=== PATIENT | female | born 1995 | race African-American/Black ===

== ENCOUNTER 2016-08-09 04:40 | Emergency (ER) | payer SELFPAY ==
[~2016-08-09] VITALS: Ht 152.4 cm; Wt 68.0 kg
[2016-08-09 04:42] VITALS: BP 115/78; PULSE 102; RESP 20; TEMP 98.2; O2SAT 99
--- NOTE | 2016-08-09 04:59 | PD ---
HPI Chief Complaint: Cold / Flu Symptoms Time Seen by Provider: 04:50 Travel History International Travel<30 days: No Contact w/Intl Traveler<30days: No Traveled to known affect area: No History of Present Illness HPI This is a 20-year-old female noticed significant past medical history. She presents for evaluation of cough, congestion. Symptoms started 2 weeks ago. She reports nasal congestion, dry nonproductive cough, occasional posttussive emesis. Denies fevers, chills, sore throat, ear pain, recent travel. She's been using [id number] Mucinex but symptoms persist which prompted evaluation. She has no other complaints at this time. PFSH Past Medical History Diminished Hearing: No Gastrointestinal Disorders: Yes (anal fissure) ?: Not LMP: THIS WEEK : 0 Social History Alcohol Use: No Tobacco Use: No Substance Use: No Allergies-Medications (Allergen,Severity, Reaction): Coded Allergies: No Known Allergies (Unverified , 08/09/16) Reported Meds & Prescriptions Reported Meds & Active Scripts Active Tessalon Perles (Benzonatate) 100 Mg Cap 200 Mg PO TID PRN Afrin Nasal [place] (Oxymetazoline HCl) 0.05% [place] 2-3 [place] EACH NARE Q12H PRN Review of Systems Except as stated in HPI: all other systems reviewed are Neg Physical Exam Narrative GENERAL: Well-developed well-nourished female in no acute distress SKIN: Warm and dry. HEAD: Atraumatic. Normocephalic. EYES: Pupils equal and round. No scleral icterus. No injection or drainage. ENT: No nasal bleeding or discharge. Mucous membranes pink and moist. No oropharyngeal erythema or exudate. Tympanic membranes reveal normal anatomic landmarks no erythema or fluid level NECK: Trachea midline. No JVD. No lymphadenopathy CARDIOVASCULAR: Regular rate and rhythm. No murmur appreciated. RESPIRATORY: No accessory muscle use. Clear to auscultation. Breath sounds equal bilaterally. No crackles no wheezing or rhonchi Data Data Last Documented VS Vital Signs Date Time Temp Pulse Resp B/P Pulse Ox O2 Delivery O2 Flow Rate FiO2 08/09/16 04:42 98.2 102 20 115/78 99 Orders Chest, Single Ap (08/09/16 ) Oxymetazoline 0.05% Maximo [place] (Afrin 0.0 (08/09/16 05:00) Benzonatate (Tessalon) (08/09/16 05:00) [facility] Medical Decision Making Medical Screen Exam Complete: Yes Emergency Medical Condition: Yes Medical Record Reviewed: Yes Interpretation(s) Chest x-ray no acute abnormalities Differential Diagnosis Rhinitis, bronchitis, sinusitis, pneumonia, influenza, reactive airway disease Narrative Course 20-year-old female who has had a persistent cough and nasal congestion for 2 weeks. The patient will be given Afrin, Tessalon. Chest x-ray has been ordered. Chest x-ray reveals no acute abnormalities. Upon reexamination the patient feels much better. Plan will be discharge the patient with Tessalon, Afrin for outpatient use. She is stable for discharge. Diagnosis Primary Impression: Upper respiratory infection Qualified Code: J06.9 - Upper respiratory tract infection, unspecified type Additional Instructions: Medication as prescribed. Do not use Afrin longer than 3 days as this can cause worsening congestion. Stay well hydrated and well-nourished. Follow-up with primary care physician as needed. Med/Other Pt SpecificInfo: Prescription(s) given Scripts Benzonatate (Tessalon Perles)100 Mg [id number] Mg PO TID PRN (COUGH) #30 CAP Ref 0 Prov:Carmen Cyr MD 08/09/16 Oxymetazoline Nasal (Afrin Nasal [place])0.05% Spray2-3 [place] EACH NARE Q12H PRN ( NASAL CONGESTION) #1 BOTTLE Ref 0 Prov:Carmen Cyr MD 08/09/16 Disposition: 01 DISCHARGE HOME Condition: Stable Ti Brito Aug 09, 2016 04:59
[2016-08-09] MEDS ORDERED: BENZONATATE 100 MG CAP PO ONE (05:00)
[2016-08-09] MEDS ORDERED: OXYMETAZOLINE HCL 0.05% 15 ML NASAL SPRAY NASAL ONE (05:00)
[2016-08-09] MEDS ORDERED: AFRI0.052 EACH NARE (06:02)
[2016-08-09] MEDS ORDERED: BENZ100 PO (06:02)
--- NOTE | 2016-08-09 06:25 | RADRPT ---
EXAM DATE/TIME: 08/09/2016 05:29 [place] COMPARISON: No previous studies available for comparison. INDICATIONS : Congestion. MEDICAL HISTORY : None. SURGICAL HISTORY : None. ENCOUNTER: Initial ACUITY: 2 weeks PAIN SCORE: 0/10 LOCATION: Bilateral chest FINDINGS: A single view of the chest demonstrates the lungs to be symmetrically aerated without evidence of mas s, infiltrate or effusion. The cardiomediastinal contours are unremarkable. Osseous structures are intact. CONCLUSION: Normal examination. Layton Torres Jr., MD on August 09, 2016 at 6:23 Board Certified Radiologist. This report was verified electronically.
== END 2016-08-09 06:14 | disposition home or self-care (01) ==
LOC: NEPB 04:40
DX: J06.9 Acute upper respiratory infection, unspecified (principal); R09.81 Nasal congestion
CPT/HCPCS: 71010; 99283

== ENCOUNTER 2018-07-22 23:39 | Observation (INO) ==
[2018-07-23 00:33] LABS: Baso % (Auto) 0.5 % (0.0-2.0); Eos # (Auto) 0.1 th/mm3 (0.0-0.4); Hematocrit 40.3 % (35.0-46.0); Hemoglobin 13.6 gm/dL (11.6-15.3); Lymph # (Auto) 5.5 th/mm3 (1.0-4.8); Lymph % (Auto) 56.9 % (9.0-44.0); Mean Corpuscular HGB Conc 33.8 % (32.0-36.0); Mean Corpuscular Hemoglobin 30.4 pg (27.0-34.0); Mean Corpuscular Volume 89.8 fL (80.0-100.0); Mono # (Auto) 0.4 th/mm3 (0.0-0.9); Mono % (Auto) 4.6 % (0.0-8.0); Neut # (Auto) 3.6 th/mm3 (1.8-7.7); Platelet Count 310 th/mm3 (150-450); Red Blood Count 4.49 mil/mm3 (4.00-5.30); Red Cell Distribution Width 14.2 % (11.6-17.2); White Blood Count 9.6 th/mm3 (4.0-11.0)
--- NOTE | 2018-07-23 00:42 | XR ---
EXAM DATE: 07/23/2018 12:27 AM EST AGE/SEX: 22 years / Female INDICATIONS: Short of breath, AMS. CLINICAL DATA: This is the patient's initial encounter. Patient reports that signs and symptoms have been present for 1 day and indicates a pain score of 0/10. MEDICAL/SURGICAL HISTORY: None. None. COMPARISON: [facility] [place], CHEST SINGLE AP, 08/09/2016. . FINDINGS: There is significant patient rotation towards the right which creates an asymmetry between left and r ight hemithorax. When taking into account the patient rotation, the lungs are symmetrically aerated a nd clear. No evidence of pneumothorax. The heart is normal in size. Both hemidiaphragms well delineat ed. CONCLUSION: The lungs are clear. Electronically signed by: Layton Mckenzie MD Board Certified Radiologist 07/23/2018 12:40 AM EST
[2018-07-23 00:44] LABS: Activated Partial Thrombo Time 28.9 sec (23.4-31.7); Prothrombin Time 10.3 sec (9.8-11.6)
--- NOTE | 2018-07-23 00:49 | ED ---
HPI General Chief Complaint: Altered Mental Status Stated Complaint: resp Time Seen by Provider: 07/22/18 23:45 History of Present Illness HPI narrative: 22 Y B F presents to the ED via EMS for altered mental status. Note: a good hx is unobtainable at this time as the patient is not responding appropriately to questions and repeatedly states "I don't know," when I tried to converse with her. She does state that she has a headache and her abdomen hurts as well. She did not provide further information when asked. She admits to vomiting and diarrhea, but again does not provide further information on questioning. UPDATE: Since initial encounter >1 hr ago in ED after eating at restaurant, patient is no longer anxious or in distress and communicates normally. She has no memory loss and states that she was frustrated when she couldn't tell providers what was wrong with her, and she felt "foggy," at that time. Her chief concern is a throbbing unilateral headache on the left side for the past few hours. She admitted to visual changes when she was first evaluated in the ED , stating her vision was "blurry and felt like she can't focus." Denies autonomic signs. She has also had some constant diffuse abdominal pain, but it is her headache that is bothering her the most. Related Data Home Medications Medication Instructions Recorded Confirmed No Known Home Medications 07/22/18 07/22/18 Allergies Allergy/AdvReac Type Severity Reaction Status Date / Time No Known Allergies Allergy Uncoded 08/09/16 04:57 Review of Systems Constitutional Reports as per HPI and Reports fever(s) Cardiovascular Reports as per HPI Respiratory Reports as per HPI Gastrointestinal Reports as per HPI, Reports abdominal pain and Reports diarrhea PMFSH Medical History Medical History No significant past medical history (Acute) Family History Family History Other Family history normal Social History Social History Substance History: No History of Abuse Second Hand Smoke Exposure: No Smoking Status: Never smoker How Often Do You Have a Drink Containing Alcohol: Never Recent Travel in [facility] within the Last 8 Weeks: No Recent Out of Country Travel within the Last 8 Weeks: No Exam Const General: anxious Nutritional Appearance: well nourished Orientation: alert and other (she is responsive to commands but is not able to express speech and engage in conversation beyond simple "yes, no, and I dont know") [facility] Head: normal to inspection, normocephalic and atraumatic Neck Neck: normal visual inspection, full ROM, no meningeal signs and supple Resp Auscultation: clear to auscultation bilaterally Cardio Rate: regular rate Rhythm: regular rhythm Course Initial Documented Vital Signs Temperature 97.8 F 07/22/18 23:43 Pulse Rate 69 07/22/18 23:43 Respiratory Rate 24 07/22/18 23:43 Blood Pressure 111/79 07/22/18 23:43 Pulse Oximetry 100 07/22/18 23:43 Last Documented Vital Signs Temperature 97.8 F 07/22/18 23:43 Pulse Rate 68 07/23/18 04:29 Respiratory Rate 15 07/23/18 04:29 Blood Pressure 90/51 L 07/23/18 04:29 Pulse Oximetry 99 07/23/18 04:29 Medical Decision Making MDM Narrative Medical decision making narrative: I, Dr. Cyr, have reviewed the medical student's documentation, and I am in agreement, met with the patient face to face, made the diagnosis, and the medical decision making was done by me. The patient was initially evaluated by MS ROSETTE Hardwick. Please see their complete history and physical. *My assessment and Findings: The patient presents with a history of altered mentation noted at a restaurant prior to arrival. According to ambulance services, the patient was noted to be altered at a restaurant therefore she was brought to the emergency department for evaluation and treatment. The patient is repetitive with her answers, stating okay or yes even when the question would not require that type of answer. The patient otherwise on exam is nonfocal. The patient has no nuchal rigidity. The patient attempts to follow commands. She denies any alcohol or drug use. After her workup was started, the patient became more lucid and was able to provide her history. The patient additionally had one episode of nausea and vomiting while being observed in the emergency department. During the course of the patient's emergency department visit, the patient's history, examination, and differential diagnosis were reviewed with the patient. The patient was placed on a activities officer with oximetry and frequent blood pressure monitoring. The patient had IV access obtained and blood work sent for analysis. The patient was initially provided normal saline 1 L IV fluid bolus, Zofran 4 mg IV. The patient's diagnostic studies were reviewed and remarkable for A white count of 9.6, hemoglobin 13.6, platelets 310 with 56.9 lymphocytes, PT PTT within normal limits, chemistries remarkable for potassium 3.2, GFR of 82, glucose 103 , troponin I within normal limits, ammonia level within normal limits, urinalysis shows no acute abnormality, acetaminophen is less than 2, salicylate less than 1.7, urine drug screen is negative, alcohol level is less than 3. CHEST X-RAY: Shows no acute abnormality, CT scan of the brain shows no acute abnormality. CTA of the head and neck shows no acute abnormality. The patient will be admitted to the hospital for continued evaluation and treatment of an episode of altered mentation associated with headache. The patient's case including history, pertinent physical examination findings, and laboratory studies were discussed with Dr. Fischer. It was agreed that the patient would be admitted to the hospitalist service. The patient's results were discussed with the patient, including the plan of care. I explained that further testing and/ or monitoring is indicated based on the patient's history, examination, and/ or laboratory findings. Therefore, I recommended admission for additional evaluation. The patient expressed understanding and was agreeable with this plan. The patient was admitted to the hospital in guarded condition and sent to a bed under the care of [facility] service. Medical Screen Exam Complete: Yes Emergency Medical Condition: Yes Differential Diagnosis Differential Diagnosis: Intracranial hemorrhage, versus intracranial mass, versus encephalopathy, versus electrolyte derangements, versus substance intoxication, versus seizure activity Medical Records Medical records reviewed: Yes I reviewed the patient's medical records. Lab Data Lab results reviewed: Yes I reviewed the patient's lab results. Result diagrams: 07/23/18 00:25 07/23/18 00:25 POC Results POC Urine Results Negative Lab Results 07/23/18 07/23/18 07/23/18 Range/Units 00:12 00:25 00:25 WBC 9.6 (4.0-11.0) th/mm3 RBC 4.49 (4.00-5.30) mil/mm3 Hgb 13.6 (11.6-15.3) gm/dL Hct 40.3 (35.0-46.0) % MCV 89.8 (80.0-100.0) fL MCH 30.4 (27.0-34.0) pg MCHC 33.8 (32.0-36.0) % RDW 14.2 (11.6-17.2) % Plt Count 310 (150-450) th/mm3 MPV 8.0 (7.0-11.0) fL Prelim Diff (Auto) Slide review pending Neut % (Auto) 37.0 (16.0-70.0) % Lymph % (Auto) 56.9 H (9.0-44.0) % [place] % (Auto) 4.6 (0.0-8.0) % Eos % (Auto) 1.0 (0.0-4.0) % Baso % (Auto) 0.5 (0.0-2.0) % Neut # (Auto) 3.6 (1.8-7.7) th/mm3 Lymph # (Auto) 5.5 H (1.0-4.8) th/mm3 [place] # (Auto) 0.4 (0.0-0.9) th/mm3 Eos # (Auto) 0.1 (0.0-0.4) th/mm3 Baso # (Auto) 0.0 (0.0-0.2) th/mm3 WBC Differential Manual diff final Seg Neuts % (Manual) 31 (16-70) % Lymphocytes % (Manual) 55 H (9-44) % Atypical Lymphs % (Man) 10 H (0-0) % Monocytes % (Manual) 3 (0-8) % Basophils % (Manual) 1 (0-2) % Abs Neuts (Manual) 3.0 (1.8-7.7) th/mm3 Differential Comment . Platelet Estimate Normal (Normal) Platelet Morphology Normal (Normal) RBC Morphology Normal (Normal) ESR (0-20) mm/hr PT 10.3 (9.8-11.6) sec INR 1.0 Ratio APTT 28.9 (23.4-31.7) sec Sodium (136-145) meq/L Potassium (3.5-5.1) meq/L Chloride (98-107) meq/L Carbon Dioxide (21.0-32.0) meq/L Anion Gap (5-15) meq/L BUN (7-18) mg/dL Creatinine (0.50-1.00) mg/dL Estimated GFR (>89) mL/min POC Glucose 125 H (68-110) mg/dl Random Glucose (74-106) mg/dL Calcium (8.5-10.1) mg/dL Magnesium (1.5-2.5) mg/dL Total Bilirubin (0.2-1.0) mg/dL AST (15-37) U/L ALT (10-53) U/L Alkaline Phosphatase (45-117) U/L Ammonia (11-32) mcmol/L Troponin I (0.02-0.05) ng/mL Total Protein (6.4-8.2) g/dL Albumin (3.4-5.0) g/dL TSH (0.358-3.740) uIU/mL Urine Color (Yellw/Straw) Urine Clarity (Clear) Urine pH (5.0-8.5) Ur Specific [place] (1.002-1.035) Urine Protein (Neg-Trace) mg/dL Urine Glucose (UA) (Negative) mg/dL Urine Ketones (Negative) mg/dL Urine Occult Blood (Negative) Urine Nitrate (Negative) Urine Bilirubin (Negative) Urine Urobilinogen (Less than 2) mg/dL Ur Leukocyte Esterase (Negative) Urine RBC (0-3) /hpf Urine WBC (0-5) /hpf Ur Squamous Epith Cells (0-5) /hpf Urine Mucus (Occasional) /lpf Micro UA Comment Ur Microscopic Review Urine Culture Comments Salicylates (2.8-20.0) mg/dL Urine Opiates Screen (Neg) Acetaminophen (10.0-30.0) mcg/mL Ur Barbiturates Screen (Neg) Ur Amphetamine Screen (Neg) Ur Amphetamines Screen (Neg) U Benzodiazepines Scrn (Neg) Urine Cocaine Screen (Neg) U Cannabinoids Screen (Neg) Serum Alcohol (0-5) mg/dL 07/23/18 07/23/18 07/23/18 Range/Units 00:25 00:25 00:25 WBC (4.0-11.0) th/mm3 RBC (4.00-5.30) mil/mm3 Hgb (11.6-15.3) gm/dL Hct (35.0-46.0) % MCV (80.0-100.0) fL MCH (27.0-34.0) pg MCHC (32.0-36.0) % RDW (11.6-17.2) % Plt Count (150-450) th/mm3 MPV (7.0-11.0) fL Prelim Diff (Auto) Neut % (Auto) (16.0-70.0) % Lymph % (Auto) (9.0-44.0) % [place] % (Auto) (0.0-8.0) % Eos % (Auto) (0.0-4.0) % Baso % (Auto) (0.0-2.0) % Neut # (Auto) (1.8-7.7) th/mm3 Lymph # (Auto) (1.0-4.8) th/mm3 [place] # (Auto) (0.0-0.9) th/mm3 Eos # (Auto) (0.0-0.4) th/mm3 Baso # (Auto) (0.0-0.2) th/mm3 WBC Differential Seg Neuts % (Manual) (16-70) % Lymphocytes % (Manual) (9-44) % Atypical Lymphs % (Man) (0-0) % Monocytes % (Manual) (0-8) % Basophils % (Manual) (0-2) % Abs Neuts (Manual) (1.8-7.7) th/mm3 Differential Comment Platelet Estimate (Normal) Platelet Morphology (Normal) RBC Morphology (Normal) ESR (0-20) mm/hr PT (9.8-11.6) sec INR Ratio APTT (23.4-31.7) sec Sodium 139 (136-145) meq/L Potassium 3.2 L (3.5-5.1) meq/L Chloride 104 (98-107) meq/L Carbon Dioxide 24.7 (21.0-32.0) meq/L Anion Gap 10 (5-15) meq/L BUN 12 (7-18) mg/dL Creatinine 1.00 (0.50-1.00) mg/dL Estimated GFR 82 L (>89) mL/min POC Glucose (68-110) mg/dl Random Glucose 103 (74-106) mg/dL Calcium 8.6 (8.5-10.1) mg/dL Magnesium 1.9 (1.5-2.5) mg/dL Total Bilirubin 0.3 (0.2-1.0) mg/dL AST 21 (15-37) U/L ALT 21 (10-53) U/L Alkaline Phosphatase 79 (45-117) U/L Ammonia 23 (11-32) mcmol/L Troponin I Less than 0.02 L (0.02-0.05) ng/mL Total Protein 8.4 H (6.4-8.2) g/dL Albumin 4.0 (3.4-5.0) g/dL TSH 3.070 (0.358-3.740) uIU/mL Urine Color (Yellw/Straw) Urine Clarity (Clear) Urine pH (5.0-8.5) Ur Specific [place] (1.002-1.035) Urine Protein (Neg-Trace) mg/dL Urine Glucose (UA) (Negative) mg/dL Urine Ketones (Negative) mg/dL Urine Occult Blood (Negative) Urine Nitrate (Negative) Urine Bilirubin (Negative) Urine Urobilinogen (Less than 2) mg/dL Ur Leukocyte Esterase (Negative) Urine RBC (0-3) /hpf Urine WBC (0-5) /hpf Ur Squamous Epith Cells (0-5) /hpf Urine Mucus (Occasional) /lpf Micro UA Comment Ur Microscopic Review Urine Culture Comments Salicylates Less than 1.7 L (2.8-20.0) mg/dL Urine Opiates Screen (Neg) Acetaminophen Less than 2.0 L (10.0-30.0) mcg/mL Ur Barbiturates Screen (Neg) Ur Amphetamine Screen (Neg) Ur Amphetamines Screen (Neg) U Benzodiazepines Scrn (Neg) Urine Cocaine Screen (Neg) U Cannabinoids Screen (Neg) Serum Alcohol Less than 3 (0-5) mg/dL 07/23/18 07/23/18 07/23/18 Range/Units 00:25 00:25 00:25 WBC (4.0-11.0) th/mm3 RBC (4.00-5.30) mil/mm3 Hgb (11.6-15.3) gm/dL Hct (35.0-46.0) % MCV (80.0-100.0) fL MCH (27.0-34.0) pg MCHC (32.0-36.0) % RDW (11.6-17.2) % Plt Count (150-450) th/mm3 MPV (7.0-11.0) fL Prelim Diff (Auto) Neut % (Auto) (16.0-70.0) % Lymph % (Auto) (9.0-44.0) % [place] % (Auto) (0.0-8.0) % Eos % (Auto) (0.0-4.0) % Baso % (Auto) (0.0-2.0) % Neut # (Auto) (1.8-7.7) th/mm3 Lymph # (Auto) (1.0-4.8) th/mm3 [place] # (Auto) (0.0-0.9) th/mm3 Eos # (Auto) (0.0-0.4) th/mm3 Baso # (Auto) (0.0-0.2) th/mm3 WBC Differential Seg Neuts % (Manual) (16-70) % Lymphocytes % (Manual) (9-44) % Atypical Lymphs % (Man) (0-0) % Monocytes % (Manual) (0-8) % Basophils % (Manual) (0-2) % Abs Neuts (Manual) (1.8-7.7) th/mm3 Differential Comment Platelet Estimate (Normal) Platelet Morphology (Normal) RBC Morphology (Normal) ESR 13 (0-20) mm/hr PT (9.8-11.6) sec INR Ratio APTT (23.4-31.7) sec Sodium (136-145) meq/L Potassium (3.5-5.1) meq/L Chloride (98-107) meq/L Carbon Dioxide (21.0-32.0) meq/L Anion Gap (5-15) meq/L BUN (7-18) mg/dL Creatinine (0.50-1.00) mg/dL Estimated GFR (>89) mL/min POC Glucose (68-110) mg/dl Random Glucose (74-106) mg/dL Calcium (8.5-10.1) mg/dL Magnesium (1.5-2.5) mg/dL Total Bilirubin (0.2-1.0) mg/dL AST (15-37) U/L ALT (10-53) U/L Alkaline Phosphatase (45-117) U/L Ammonia (11-32) mcmol/L Troponin I (0.02-0.05) ng/mL Total Protein (6.4-8.2) g/dL Albumin (3.4-5.0) g/dL TSH (0.358-3.740) uIU/mL Urine Color Yellow (Yellw/Straw) Urine Clarity Clear (Clear) Urine pH 7.0 (5.0-8.5) Ur Specific [place] 1.025 (1.002-1.035) Urine Protein Negative (Neg-Trace) mg/dL Urine Glucose (UA) Negative (Negative) mg/dL Urine Ketones Negative (Negative) mg/dL Urine Occult Blood Negative (Negative) Urine Nitrate Negative (Negative) Urine Bilirubin Negative (Negative) Urine Urobilinogen Less than 2 (Less than 2) mg/dL Ur Leukocyte Esterase Negative (Negative) Urine RBC 1 (0-3) /hpf Urine WBC Less than 1 (0-5) /hpf Ur Squamous Epith Cells 1 (0-5) /hpf Urine Mucus Few H (Occasional) /lpf Micro UA Comment Culture not ind Ur Microscopic Review Not Reportable Urine Culture Comments Culture not ind Salicylates (2.8-20.0) mg/dL Urine Opiates Screen Neg (Neg) Acetaminophen (10.0-30.0) mcg/mL Ur Barbiturates Screen Neg (Neg) Ur Amphetamine Screen (Neg) Ur Amphetamines Screen Neg (Neg) U Benzodiazepines Scrn Neg (Neg) Urine Cocaine Screen Neg (Neg) U Cannabinoids Screen Neg (Neg) Serum Alcohol (0-5) mg/dL 07/23/18 Range/Units 00:25 WBC (4.0-11.0) th/mm3 RBC (4.00-5.30) mil/mm3 Hgb (11.6-15.3) gm/dL Hct (35.0-46.0) % MCV (80.0-100.0) fL MCH (27.0-34.0) pg MCHC (32.0-36.0) % RDW (11.6-17.2) % Plt Count (150-450) th/mm3 MPV (7.0-11.0) fL Prelim Diff (Auto) Neut % (Auto) (16.0-70.0) % Lymph % (Auto) (9.0-44.0) % [place] % (Auto) (0.0-8.0) % Eos % (Auto) (0.0-4.0) % Baso % (Auto) (0.0-2.0) % Neut # (Auto) (1.8-7.7) th/mm3 Lymph # (Auto) (1.0-4.8) th/mm3 [place] # (Auto) (0.0-0.9) th/mm3 Eos # (Auto) (0.0-0.4) th/mm3 Baso # (Auto) (0.0-0.2) th/mm3 WBC Differential Seg Neuts % (Manual) (16-70) % Lymphocytes % (Manual) (9-44) % Atypical Lymphs % (Man) (0-0) % Monocytes % (Manual) (0-8) % Basophils % (Manual) (0-2) % Abs Neuts (Manual) (1.8-7.7) th/mm3 Differential Comment Platelet Estimate (Normal) Platelet Morphology (Normal) RBC Morphology (Normal) ESR (0-20) mm/hr PT (9.8-11.6) sec INR Ratio APTT (23.4-31.7) sec Sodium (136-145) meq/L Potassium (3.5-5.1) meq/L Chloride (98-107) meq/L Carbon Dioxide (21.0-32.0) meq/L Anion Gap (5-15) meq/L BUN (7-18) mg/dL Creatinine (0.50-1.00) mg/dL Estimated GFR (>89) mL/min POC Glucose (68-110) mg/dl Random Glucose (74-106) mg/dL Calcium (8.5-10.1) mg/dL Magnesium (1.5-2.5) mg/dL Total Bilirubin (0.2-1.0) mg/dL AST (15-37) U/L ALT (10-53) U/L Alkaline Phosphatase (45-117) U/L Ammonia (11-32) mcmol/L Troponin I (0.02-0.05) ng/mL Total Protein (6.4-8.2) g/dL Albumin (3.4-5.0) g/dL TSH (0.358-3.740) uIU/mL Urine Color (Yellw/Straw) Urine Clarity (Clear) Urine pH (5.0-8.5) Ur Specific [place] (1.002-1.035) Urine Protein (Neg-Trace) mg/dL Urine Glucose (UA) (Negative) mg/dL Urine Ketones (Negative) mg/dL Urine Occult Blood (Negative) Urine Nitrate (Negative) Urine Bilirubin (Negative) Urine Urobilinogen (Less than 2) mg/dL Ur Leukocyte Esterase (Negative) Urine RBC (0-3) /hpf Urine WBC (0-5) /hpf Ur Squamous Epith Cells (0-5) /hpf Urine Mucus (Occasional) /lpf Micro UA Comment Ur Microscopic Review Urine Culture Comments Salicylates (2.8-20.0) mg/dL Urine Opiates Screen Neg (Neg) Acetaminophen (10.0-30.0) mcg/mL Ur Barbiturates Screen Neg (Neg) Ur Amphetamine Screen Neg (Neg) Ur Amphetamines Screen (Neg) U Benzodiazepines Scrn Neg (Neg) Urine Cocaine Screen Neg (Neg) U Cannabinoids Screen Neg (Neg) Serum Alcohol (0-5) mg/dL Imaging Data Radiologist's impression: Chest X-Ray 07/23/18 00:00 CONCLUSION: The lungs are clear. Head CT 07/23/18 00:47 CONCLUSION: 1. Normal noncontrast CT brain. . Head CTA 07/23/18 01:29 CONCLUSION: 1. Negative CTA of the redding of [place]. . Neck CTA 07/23/18 01:29 CONCLUSION: 1. Negative CT of the carotids. ECG Data Attestation: I personally reviewed and interpreted this ECG as follows: Interpretation: The patient had an EKG done on arrival that shows a sinus rhythm heart rate is 63, QRS duration is 86 ms, QTC [address] segment elevation, T waves are inverted in V1, V2, V3. Discharge Plan Discharge Disposition Patient Disposition: ED Admit(ED Internal Use Only) Discharge Order Discharge Orders: ED Use Only Admit Order (Routine); Ordered 07/23/18 Ordered By: Carmen Cyr Discharge Details Diagnosis: Altered mental status Physicians Team ED Provider: Carmen Cyr Primary Care Provider: UNKNOWN, Attending Provider: Julissa Fischer Other Providers: Dudley Johnson Discharge Interventions Interventions: Vital Signs Last Done: 07/23/18 02:35 Status ED Status: Admitted Observation Patient
[2018-07-23 00:52] LABS: Amphetamine Screen,Urine Neg (Neg); Barbiturate Screen,Urine Neg (Neg); Bilirubin,Urine Negative (Negative); Cannabinoid Screen,Urine Neg (Neg); Clarity,Urine Clear (Clear); Cocaine Screen,Urine Neg (Neg); Color,Urine Yellow (Yellw/Straw); Glucose,Urine (UA) Negative (Negative); Leukocyte Esterase,Urine Negative (Negative); Mucus,Urine Few /lpf (Occasional); Nitrite,Urine Negative (Negative); Specific Gravity,Urine 1.025 (1.002-1.035); Squamous Epithelial Cell,Urine 1 /hpf (0-5)
[2018-07-23 00:54] LABS: Anion Gap 10 meq/L (5-15); Aspartate Aminotransferase 21 U/L (15-37); Blood Urea Nitrogen 12 mg/dL (7-18); Calcium 8.6 mg/dL (8.5-10.1); Carbon Dioxide 24.7 meq/L (21.0-32.0); Chloride 104 meq/L (98-107); Glomerular Filtration Rate 82 mL/min (>89); Glucose,Random 103 mg/dL (74-106); Magnesium 1.9 mg/dL (1.5-2.5); Potassium 3.2 meq/L (3.5-5.1); Sodium 139 meq/L (136-145)
--- NOTE | 2018-07-23 00:57 | CT ---
EXAM DATE: 07/23/2018 12:53 AM EST AGE/SEX: 22 years / Female INDICATIONS: Altered mental status. CLINICAL DATA: This is the patient's initial encounter. Patient reports that signs and symptoms have been present for 1 day and indicates a pain score of 0/10. MEDICAL/SURGICAL HISTORY: None. None. RADIATION DOSE: 34.94 CTDI (mGy) COMPARISON: No prior exams available for comparison. TECHNIQUE: CT of the head without contrast. Using automated exposure control and adjustment of the mA and/or kV according to patient size, radiation dose was kept as low as reasonably achievable to ob tain optimal diagnostic quality images. DICOM format image data is available electronically for revi ew and comparison. FINDINGS: Cerebrum: The ventricles are normal for age. No evidence of midline shift, mass lesion, hemorrhage or acute infarction. No extraaxial fluid collections are seen. Posterior Fossa: The cerebellum and brainstem are intact. The 4th ventricle is midline. The cerebe llopontine angle is unremarkable. Extracranial: The visualized portion of the orbits is intact. Skull: The calvaria is intact. No evidence of skull fracture. CONCLUSION: 1. Normal noncontrast CT brain. . Electronically signed by: Layton Mckenzie MD Board Certified Radiologist 07/23/2018 12:56 AM EST
[2018-07-23 00:58] LABS: Opiate Screen,Urine Neg (Neg)
[2018-07-23] MEDS ORDERED: Sodium Chlor 0.9% Inj 500 ML IV.SIG SCH (01:00)
[2018-07-23 01:03] LABS: Alanine Aminotransferase 21 U/L (10-53); Alkaline Phosphatase 79 U/L (45-117); Total Protein 8.4 g/dL (6.4-8.2)
[2018-07-23 01:14] LABS: Atypical Lymphs 10 % (0-0); Lymphocytes 55 % (9-44); Monocytes 3 % (0-8); Platelet Estimate Normal (Normal); Platelet Morphology Normal (Normal); RBC Morphology Normal (Normal)
[2018-07-23] MEDS ORDERED: Sod Chloride 0.9% Inj 1,000 ML IV.SIG ONE (02:36)
[2018-07-23] MEDS ORDERED: Acetaminophen 325 MG Tablet PO PRN (03:06)
[2018-07-23] MEDS ORDERED: Bisacodyl 10 MG Supp RECTAL PRN (03:06)
--- NOTE | 2018-07-23 03:36 | P.HP ---
History of Present Illness Service: [facility] Primary Care Physician: UNKNOWN History of Present Illness: 22-year-old female with no significant past medical history presents to the emergency department for evaluation of altered mental status. The patient reports she was sitting in a restaurant when she had "an anxiety attack". She reports that her heart was racing and her head was pounding and she was unable to answer questions that bystanders asked her. She states she understood the questions that they were asking and knew the answers but was unable to speak. On arrival to the emergency department she was unable to provide any further information. At the time of our interview, the patient had returned to baseline and was alert and oriented x4. She was able to recount what had happened. She denies any seizure history or seizure-like activity. No chest pain or shortness of breath. Positive nausea/vomiting and accompanying abdominal pain. Positive headache. No focal neurologic deficits or weakness. No fever/chills. The patient reports she had one amaretto sour earlier this evening, denies illicit drug use. Review of Systems All other systems reviewed negative except as [facility] - History History Provided By: Patient, [employer] / EMT - Medical History Medical History: Medical History (Last Updated 07/23/18 @ 03:31 by Julissa Fischer MD) No significant past medical history - Surgical History Surgical History: Surgical History (Last Reviewed 07/23/18 @ 03:31 by Julissa Fischer MD) No history of previous surgery - Family History Family History: Family History (Last Updated 07/23/18 @ 03:31 by Julissa Fischer MD) Other Family history normal - Social History I have reviewed the patient's Social History: Yes - Tobacco History Second Hand Smoke Exposure: No Smoking Status: Never smoker - Alcohol History How Often Do You Have a Drink Containing Alcohol: Never - Substance Use History Substance History: No History of Abuse - Travel History Recent Travel in the [place] Within the Last 8 Weeks: No Recent Travel Out of the Country Within the Last 8 Weeks: No - Immunization History Tetanus Immunization: Unable to Assess Medications and Allergies Active Medications: Active Medications Acetaminophen (Tylenol) 650 mg PO Q4H PRN PRN Reason: Temp > 100.4 Al Hydroxide/Mg Hydroxide (Milk Of Magnesia Liq) 30 ml PO Q12H PRN PRN Reason: Mild Constipation Bisacodyl (Dulcolax Supp) 10 mg RECTAL DAILY PRN PRN Reason: SEVERE CONSITIPATION Sodium Chloride (Ns Inj) 1,000 mls @ 100 mls/hr IV.CONT .Q10H AIMEE Lactulose (Lactulose Liq) 30 ml PO DAILY PRN PRN Reason: SEVERE CONSITIPATION Ondansetron HCl (Zofran Inj) 4 mg IV.PUSH Q6H PRN PRN Reason: NAUSEA OR VOMITING Sennosides (Senokot) 17.2 mg PO Q12H PRN PRN Reason: Moderate Constipation Sodium Chloride (Ns Flush) 2 ml IV.FLUSH PRN PRN PRN Reason: FLUSH AFTER USING IV ACCESS Sodium Chloride (Ns Flush) 2 ml IV.FLUSH BID AIMEE Sodium Chloride (Ns Flush) 2 ml IV.FLUSH PRN PRN PRN Reason: FLUSH AFTER USING IV ACCESS Allergies Allergy/AdvReac Type Severity Reaction Status Date / Time No Known Allergies Allergy Uncoded 08/09/16 04:57 Home Medications Medication Instructions Recorded Confirmed Type No Known Home Medications 07/22/18 07/22/18 History Exam Vital signs: Vital Signs 07/22/18 23:43 07/23/18 02:35 Temperature 97.8 F Pulse Rate 69 70 Respiratory Rate 24 15 Blood Pressure 111/79 89/52 L Pulse Oximetry 100 100 Intake & Output 07/22/18 07/22/18 07/23/18 06:59 18:59 06:59 Intake Total 500 / 500 Balance 500 / 500 Weight 72.575 kg Intake: IV 500 / 500 NS Inj 500 ML @ 50 mls/hr IV. 500 / 500 SIG .Q10H AIMEE Rx#:[id number] Narrative: Gen.: No acute distress Head: Normocephalic. Atraumatic. EENT: Pupils equal round and reactive to light. Nose without drainage. Airway intact. Throat without injection. Cardiovascular: Regular rate and rhythm. No murmurs, rubs or gallops. Respiratory: Lungs clear to auscultation bilaterally. No wheezes or rhonchi. Abdomen: Soft, nontender, nondistended. No peritoneal signs. Musculoskeletal: No gross deformities. No edema. Skin: No obvious rashes or erythema. Neuro: Sensory and motor grossly intact. Cranial nerves II through XII grossly intact. Alert and oriented x4. Strength 5/5 throughout. Results - Labs CBC & Chem 7: 07/23/18 00:25 07/23/18 00:25 Labs: Laboratory Results - last 24 hr 07/23/18 07/23/18 07/23/18 00:12 00:25 00:25 WBC 9.6 RBC 4.49 Hgb 13.6 Hct 40.3 MCV 89.8 MCH 30.4 MCHC 33.8 RDW 14.2 Plt Count 310 MPV 8.0 Prelim Diff (Auto) Slide review pending Neut % (Auto) 37.0 Lymph % (Auto) 56.9 H [place] % (Auto) 4.6 Eos % (Auto) 1.0 Baso % (Auto) 0.5 Neut # (Auto) 3.6 Lymph # (Auto) 5.5 H [place] # (Auto) 0.4 Eos # (Auto) 0.1 Baso # (Auto) 0.0 WBC Differential Manual diff final Seg Neuts % (Manual) 31 Lymphocytes % (Manual) 55 H Atypical Lymphs % (Man) 10 H Monocytes % (Manual) 3 Basophils % (Manual) 1 Abs Neuts (Manual) 3.0 Differential Comment . Platelet Estimate Normal Platelet Morphology Normal RBC Morphology Normal ESR PT 10.3 INR 1.0 APTT 28.9 Sodium Potassium Chloride Carbon Dioxide Anion Gap BUN Creatinine Estimated GFR POC Glucose 125 H Random Glucose Calcium Magnesium Total Bilirubin AST ALT Alkaline Phosphatase Ammonia Troponin I Total Protein Albumin TSH Urine Color Urine Clarity Urine pH Ur Specific [place] Urine Protein Urine Glucose (UA) Urine Ketones Urine Occult Blood Urine Nitrate Urine Bilirubin Urine Urobilinogen Ur Leukocyte Esterase Urine RBC Urine WBC Ur Squamous Epith Cells Urine Mucus Micro UA Comment Ur Microscopic Review Urine Culture Comments Salicylates Urine Opiates Screen Acetaminophen Ur Barbiturates Screen Ur Amphetamines Screen U Benzodiazepines Scrn Urine Cocaine Screen U Cannabinoids Screen Serum Alcohol 07/23/18 07/23/18 07/23/18 00:25 00:25 00:25 WBC RBC Hgb Hct MCV MCH MCHC RDW Plt Count MPV Prelim Diff (Auto) Neut % (Auto) Lymph % (Auto) [place] % (Auto) Eos % (Auto) Baso % (Auto) Neut # (Auto) Lymph # (Auto) [place] # (Auto) Eos # (Auto) Baso # (Auto) WBC Differential Seg Neuts % (Manual) Lymphocytes % (Manual) Atypical Lymphs % (Man) Monocytes % (Manual) Basophils % (Manual) Abs Neuts (Manual) Differential Comment Platelet Estimate Platelet Morphology RBC Morphology ESR PT INR APTT Sodium 139 Potassium 3.2 L Chloride 104 Carbon Dioxide 24.7 Anion Gap 10 BUN 12 Creatinine 1.00 Estimated GFR 82 L POC Glucose Random Glucose 103 Calcium 8.6 Magnesium 1.9 Total Bilirubin 0.3 AST 21 ALT 21 Alkaline Phosphatase 79 Ammonia 23 Troponin I Less than 0.02 L Total Protein 8.4 H Albumin 4.0 TSH 3.070 Urine Color Urine Clarity Urine pH Ur Specific [place] Urine Protein Urine Glucose (UA) Urine Ketones Urine Occult Blood Urine Nitrate Urine Bilirubin Urine Urobilinogen Ur Leukocyte Esterase Urine RBC Urine WBC Ur Squamous Epith Cells Urine Mucus Micro UA Comment Ur Microscopic Review Urine Culture Comments Salicylates Less than 1.7 L Urine Opiates Screen Acetaminophen Less than 2.0 L Ur Barbiturates Screen Ur Amphetamines Screen U Benzodiazepines Scrn Urine Cocaine Screen U Cannabinoids Screen Serum Alcohol Less than 3 07/23/18 07/23/18 07/23/18 00:25 00:25 00:25 WBC RBC Hgb Hct MCV MCH MCHC RDW Plt Count MPV Prelim Diff (Auto) Neut % (Auto) Lymph % (Auto) [place] % (Auto) Eos % (Auto) Baso % (Auto) Neut # (Auto) Lymph # (Auto) [place] # (Auto) Eos # (Auto) Baso # (Auto) WBC Differential Seg Neuts % (Manual) Lymphocytes % (Manual) Atypical Lymphs % (Man) Monocytes % (Manual) Basophils % (Manual) Abs Neuts (Manual) Differential Comment Platelet Estimate Platelet Morphology RBC Morphology ESR 13 PT INR APTT Sodium Potassium Chloride Carbon Dioxide Anion Gap BUN Creatinine Estimated GFR POC Glucose Random Glucose Calcium Magnesium Total Bilirubin AST ALT Alkaline Phosphatase Ammonia Troponin I Total Protein Albumin TSH Urine Color Yellow Urine Clarity Clear Urine pH 7.0 Ur Specific [place] 1.025 Urine Protein Negative Urine Glucose (UA) Negative Urine Ketones Negative Urine Occult Blood Negative Urine Nitrate Negative Urine Bilirubin Negative Urine Urobilinogen Less than 2 Ur Leukocyte Esterase Negative Urine RBC 1 Urine WBC Less than 1 Ur Squamous Epith Cells 1 Urine Mucus Few H Micro UA Comment Culture not ind Ur Microscopic Review Not Reportable Urine Culture Comments Culture not ind Salicylates Urine Opiates Screen Neg Acetaminophen Ur Barbiturates Screen Neg Ur Amphetamines Screen Neg U Benzodiazepines Scrn Neg Urine Cocaine Screen Neg U Cannabinoids Screen Neg Serum Alcohol - Imaging Impressions Chest X-Ray 07/23/18 00:00 CONCLUSION: The lungs are clear. Head CT 07/23/18 00:47 CONCLUSION: 1. Normal noncontrast CT brain. . Caprini VTE Risk Assessment Caprini VTE Risk Assessment: No/Low Risk (score <= 1) Caprini Risk Assessment Model: Point Value = 1 Point Value = 2 Point Value = 3 Point Value = 5 Age 41-60 Minor surgery BMI > 25 kg/m2 Swollen legs Varicose veins or History of unexplained or recurrent spontaneous Oral contraceptives or hormone replacement Sepsis (< 1 month) Serious lung disease, including pneumonia (< 1 month) Abnormal pulmonary function Acute myocardial infarction Congestive heart failure (< 1 month) History of inflammatory bowel disease Medical patient at bed rest Age 61-74 Arthroscopic surgery Major open surgery (> 45 min) Laparoscopic surgery (> 45 min) Malignancy Confined to bed (> 72 hours) Immobilizing plaster cast Central venous access Age >= 75 History of VTE Family history of VTE Factor V Leiden Prothrombin [id number] Lupus anticoagulant Anticardiolipin antibodies Elevated serum homocysteine Heparin-induced thrombocytopenia Other congenital or acquired thrombophilia Stroke (< 1 month) Elective arthroplasty Hip, pelvis, or leg fracture Acute spinal cord injury (< 1 month) Prophylaxis Regimen: Total Risk Factor Score Risk Level Prophylaxis Regimen 0-1 Low Early ambulation 2 Moderate Order ONE of the following: *Sequential Compression Device (SCD) *Heparin 5000 units SQ BID 3-4 Higher Order ONE of the following medications: *Heparin 5000 units SQ TID *Enoxaparin/Lovenox 40 mg SQ daily (WT < 150 kg, CrCl > 30 mL/min) *Enoxaparin/Lovenox 30 mg SQ daily (WT < 150 kg, CrCl > 10-29 mL/min) *Enoxaparin/Lovenox 30 mg SQ BID (WT < 150 kg, CrCl > 30 mL/min) AND/OR *Sequential Compression Device (SCD) 5 or more Highest Order ONE of the following medications: *Heparin 5000 units SQ TID (Preferred with Epidurals) *Enoxaparin/Lovenox 40 mg SQ daily (WT < 150 kg, CrCl > 30 mL/min) *Enoxaparin/Lovenox 30 mg SQ daily (WT < 150 kg, CrCl > 10-29 mL/min) *Enoxaparin/Lovenox 30 mg SQ BID (WT < 150 kg, CrCl > 30 mL/min) AND *Sequential Compression Device (SCD) Assessment and Plan - Plan Assessment/plan: 1. Altered mental status Head CT negative for acute process Head and neck CTA pending MRI pending EEG pending Neurology consulted, appreciate assistance OB/psych drug screen pending, initial drug screen negative FEN Regular diet Electrolytes: Status post p.o. repletion of potassium, monitor BMP
--- NOTE | 2018-07-23 03:47 | CT ---
EXAM DATE: 07/23/2018 3:11 AM EST AGE/SEX: 22 years / Female INDICATIONS: Altered mental status. CLINICAL DATA: This is the patient's initial encounter. Patient reports that signs and symptoms have been present for 1 day and indicates a pain score of 0/10. MEDICAL/SURGICAL HISTORY: None. None. RADIATION DOSE: 26.43 CTDI (mGy) COMPARISON: No prior exams available for comparison. TECHNIQUE: Volumetric scanning was performed using a multirow detector CT scanner during bolus infus ion of 75 ml Omnipaque 350 (iohexol) nonionic water-soluble contrast as a cumulative dose for multip le exams. The data was postprocessed with a variety of visualization algorithms including full-volu me maximum intensity projection, multiplanar sliding thin-slab reformation, curved-planar reformation , and surface-rendering techniques. Using automated exposure control and adjustment of the mA and/or kV according to patient size, radiation dose was kept as low as reasonably achievable to obtain opti mal diagnostic quality images. DICOM format image data is available electronically for review and co mparison. FINDINGS: Aortic Arch: There is a three-vessel origin of the great vessels from the aorta. No evidence of ost ial narrowing Right Carotid: The common carotid artery is intact. The carotid bulb has a normal configuration wit hout ulceration or narrowing. The internal carotid artery lumen is smooth without stenosis. The ext ernal carotid artery is intact. Left Carotid: The common carotid artery is intact. The carotid bulb has a normal configuration with out ulceration or narrowing. The internal carotid artery lumen is smooth without stenosis. The exte rnal carotid artery is intact. Vertebrals: The vertebral arteries have a symmetric diameter. No stenotic lesions are seen. Percent stenosis is calculated using the diameter of the stenotic region over the diameter of the nor mal distal internal carotid artery. CONCLUSION: 1. Negative CT of the carotids. Electronically signed by: Layton Mckenzie MD Board Certified Radiologist 07/23/2018 3:46 AM EST
--- NOTE | 2018-07-23 03:49 | CT ---
EXAM DATE: 07/23/2018 3:11 AM EST AGE/SEX: 22 years / Female INDICATIONS: Altered mental status. CLINICAL DATA: This is the patient's initial encounter. Patient reports that signs and symptoms have been present for 1 day and indicates a pain score of 0/10. MEDICAL/SURGICAL HISTORY: None. None. RADIATION DOSE: 26.43 CTDI (mGy) COMPARISON: No prior exams available for comparison. TECHNIQUE: Volumetric scanning was performed using a multi-row detector CT scanner during bolus infu jo[place] of 75 ml Omnipaque 350 (iohexol) nonionic water-soluble contrast as a cumulative dose for multi ple exams. The data was post processed with a variety of visualization algorithms including full vo lume maximum intensity projection, multi-planar sliding thin slab reformation, curved planar reformat ion, and surface rendering techniques. Using automated exposure control and adjustment of the mA and /or kV according to patient size, radiation dose was kept as low as reasonably achievable to obtain o ptimal diagnostic quality images. DICOM format image data is available electronically for review and comparison. FINDINGS: There is excellent visualization of the major intracranial arteries out to the second-order branch ve ssels. There is no evidence for aneurysm, vessel truncation or stenosis, and no evidence for vascula r malformation. Flow seen in the anterior communicating artery and in bilateral PCOM. CONCLUSION: 1. Negative CTA of the caht[place] of [place]. . Electronically signed by: Layton Mckenzie MD Board Certified Radiologist 07/23/2018 3:47 AM EST
[2018-07-23] MEDS: Sod Chloride 0.9% Inj 1,000 ML IV.CONT SCH ×4 (03:54→23:28)
[2018-07-23 04:09] LABS: Amphetamine Urine With Conf Neg (Neg); Benzodiazepine Urine With Conf Neg (Neg); Cannabinoid Urine With Conf Neg (Neg); Cocaine Urine With Conf Neg (Neg); Opiates Urine With Conf Neg (Neg)
[2018-07-23] MEDS ORDERED: Sodium Chloride 0.9% 2 ML Flush PRN IV.FLUSH (04:34)
--- NOTE | 2018-07-23 08:30 | P.CONNEU ---
History of Present Illness Service: Neurology Primary Care Provider: UNKNOWN Chief Complaint: confusion History of Present Illness: 22-year-old female presents to the emergency department for evaluation of altered mental status. The patient reports she was sitting in a restaurant when she had "an anxiety attack". She was at [employer] and a drink was driving home when she reports that her heart was racing and her head was pounding and she was unable to answer questions that bystanders asked her. She was able to recount what had happened. She denies any seizure history or seizure-like activity. No current chest pain or shortness of breath. No history of a significant migraines. CT brain scan negative for acute lesion. CTA brain carotids negative for any significant vaso-occlusive disease She is afebrile no leukocytosis. Preliminary urine drug screen negative. Additional drug screen pending. She feels back to herself. She is unsure what happened this never happened to her before. No history of concussion or any head or neck trauma. Review of Systems All other systems reviewed negative except as stated in HPI [facility] - History History Provided By: Patient, [employer] Supervisor / EMT - Medical History Medical History: Medical History (Last Updated 07/23/18 @ 03:31 by Julissa Fischer MD) No significant past medical history - Surgical History Surgical History: Surgical History (Last Reviewed 07/23/18 @ 03:31 by Julissa Fischer MD) No history of previous surgery - Family History Family History: Family History (Last Updated 07/23/18 @ 03:31 by Julissa Fischer MD) Other Family history normal - Tobacco History Second Hand Smoke Exposure: No Smoking Status: Never smoker - Alcohol History How Often Do You Have a Drink Containing Alcohol: Never - Substance Use History Substance History: No History of Abuse - Travel History Recent Travel in the [place] Within the Last 8 Weeks: No Recent Travel Out of the Country Within the Last 8 Weeks: No - Immunization History Tetanus Immunization: Unable to Assess Medications and Allergies Active Medications: Active Medications Acetaminophen (Tylenol) 650 mg PO Q4H PRN PRN Reason: Temp > 100.4 Al Hydroxide/Mg Hydroxide (Milk Of Magnesia Liq) 30 ml PO Q12H PRN PRN Reason: Mild Constipation Bisacodyl (Dulcolax Supp) 10 mg RECTAL DAILY PRN PRN Reason: SEVERE CONSITIPATION Sodium Chloride (Ns Inj) 1,000 mls @ 100 mls/hr IV.CONT .Q10H [facility] Last Admin: 07/23/18 03:54 Dose: 100 mls/hr Lactulose (Lactulose Liq) 30 ml PO DAILY PRN PRN Reason: SEVERE CONSITIPATION Ondansetron HCl (Zofran Inj) 4 mg IV.PUSH Q6H PRN PRN Reason: NAUSEA OR VOMITING Sennosides (Senokot) 17.2 mg PO Q12H PRN PRN Reason: Moderate Constipation Sodium Chloride (Ns Flush) 2 ml IV.FLUSH BID AIMEE Sodium Chloride (Ns Flush) 2 ml IV.FLUSH PRN PRN PRN Reason: FLUSH AFTER USING IV ACCESS Allergies Allergy/AdvReac Type Severity Reaction Status Date / Time No Known Allergies Allergy Uncoded 08/09/16 04:57 Home Medications Medication Instructions Recorded Confirmed Type No Known Home Medications 07/22/18 07/22/18 History Exam Vital signs: Vital Signs 07/22/18 23:43 07/23/18 02:35 07/23/18 04:29 Temperature 97.8 F Pulse Rate 69 70 68 Respiratory Rate 24 15 15 Blood Pressure 111/79 89/52 L 90/51 L Pulse Oximetry 100 100 99 07/23/18 05:56 07/23/18 06:41 Temperature Pulse Rate 56 L 58 L Respiratory Rate 14 12 Blood Pressure 94/60 L 98/65 L Pulse Oximetry 98 99 Intake & Output 07/22/18 07/23/18 07/23/18 18:59 06:59 18:59 Intake Total 1500 / 1500 Balance 1500 / 1500 Weight 72.575 kg Intake: IV 1500 / 1500 NS Inj 1,000 ML @ Wide Open IV. 1000 / 1000 SIG BOLUS ONE Rx#:[id number] NS Inj 500 ML @ 50 mls/hr IV. 500 / 500 SIG .Q10H AIMEE Rx#:[id number] Narrative: GENERAL: in NAD, SKIN: Warm and dry. HEAD: Atraumatic. Normocephalic. EYES: Pupils equal and round. No scleral icterus. ENT: No nasal bleeding or discharge. NECK: Trachea midline. CARDIOVASCULAR: Regular rate and rhythm. RESPIRATORY: No accessory muscle use. NEUROLOGICAL: Awake and alert. No aphasia, oriented x3 fluent articulate, No facial asymmetry, OU 3-2mm, eomi, VFF, No drift, Motor grossly within normal limits. Five out of 5 muscle strength in the arms and legs. Tone normal in all 4 limbs, Sensory normal in all 4 extremities to pin, msr 1-2+ sym, no clonus, planterflexor, PSYCHIATRIC: Appropriate mood and affect; insight and judgment normal. - Constitutional no acute distress - Routine HEENT Exam Head: Present: normocephalic Eye: Present: EOMI Results - Labs CBC & Chem 7: 07/23/18 00:25 07/23/18 00:25 Labs: Laboratory Results - last 24 hr 07/23/18 07/23/18 07/23/18 00:12 00:25 00:25 WBC 9.6 RBC 4.49 Hgb 13.6 Hct 40.3 MCV 89.8 MCH 30.4 MCHC 33.8 RDW 14.2 Plt Count 310 MPV 8.0 Prelim Diff (Auto) Slide review pending Neut % (Auto) 37.0 Lymph % (Auto) 56.9 H [place] % (Auto) 4.6 Eos % (Auto) 1.0 Baso % (Auto) 0.5 Neut # (Auto) 3.6 Lymph # (Auto) 5.5 H [place] # (Auto) 0.4 Eos # (Auto) 0.1 Baso # (Auto) 0.0 WBC Differential Manual diff final Seg Neuts % (Manual) 31 Lymphocytes % (Manual) 55 H Atypical Lymphs % (Man) 10 H Monocytes % (Manual) 3 Basophils % (Manual) 1 Abs Neuts (Manual) 3.0 Differential Comment . Platelet Estimate Normal Platelet Morphology Normal RBC Morphology Normal ESR PT 10.3 INR 1.0 APTT 28.9 Sodium Potassium Chloride Carbon Dioxide Anion Gap BUN Creatinine Estimated GFR POC Glucose 125 H Random Glucose Calcium Magnesium Total Bilirubin AST ALT Alkaline Phosphatase Ammonia Troponin I Total Protein Albumin TSH Urine Color Urine Clarity Urine pH Ur Specific [place] Urine Protein Urine Glucose (UA) Urine Ketones Urine Occult Blood Urine Nitrate Urine Bilirubin Urine Urobilinogen Ur Leukocyte Esterase Urine RBC Urine WBC Ur Squamous Epith Cells Urine Mucus Micro UA Comment Ur Microscopic Review Urine Culture Comments Salicylates Urine Opiates Screen Acetaminophen Ur Barbiturates Screen Ur Amphetamine Screen Ur Amphetamines Screen U Benzodiazepines Scrn Urine Cocaine Screen U Cannabinoids Screen Serum Alcohol 07/23/18 07/23/1807/23/18 00:25 00:25 00:25 WBC RBC Hgb Hct MCV MCH MCHC RDW Plt Count MPV Prelim Diff (Auto) Neut % (Auto) Lymph % (Auto) [place] % (Auto) Eos % (Auto) Baso % (Auto) Neut # (Auto) Lymph # (Auto) [place] # (Auto) Eos # (Auto) Baso # (Auto) WBC Differential Seg Neuts % (Manual) Lymphocytes % (Manual) Atypical Lymphs % (Man) Monocytes % (Manual) Basophils % (Manual) Abs Neuts (Manual) Differential Comment Platelet Estimate Platelet Morphology RBC Morphology ESR PT INR APTT Sodium 139 Potassium 3.2 L Chloride 104 Carbon Dioxide 24.7 Anion Gap 10 BUN 12 Creatinine 1.00 Estimated GFR 82 L POC Glucose Random Glucose 103 Calcium 8.6 Magnesium 1.9 Total Bilirubin 0.3 AST 21 ALT 21 Alkaline Phosphatase 79 Ammonia 23 Troponin I Less than 0.02 L Total Protein 8.4 H Albumin 4.0 TSH 3.070 Urine Color Urine Clarity Urine pH Ur Specific [place] Urine Protein Urine Glucose (UA) Urine Ketones Urine Occult Blood Urine Nitrate Urine Bilirubin Urine Urobilinogen Ur Leukocyte Esterase Urine RBC Urine WBC Ur Squamous Epith Cells Urine Mucus Micro UA Comment Ur Microscopic Review Urine Culture Comments Salicylates Less than 1.7 L Urine Opiates Screen Acetaminophen Less than 2.0 L Ur Barbiturates Screen Ur Amphetamine Screen Ur Amphetamines Screen U Benzodiazepines Scrn Urine Cocaine Screen U Cannabinoids Screen Serum Alcohol Less than 3 07/23/18 07/23/18 07/23/18 00:25 00:25 00:25 WBC RBC Hgb Hct MCV MCH MCHC RDW Plt Count MPV Prelim Diff (Auto) Neut % (Auto) Lymph % (Auto) [place] % (Auto) Eos % (Auto) Baso % (Auto) Neut # (Auto) Lymph # (Auto) [place] # (Auto) Eos # (Auto) Baso # (Auto) WBC Differential Seg Neuts % (Manual) Lymphocytes % (Manual) Atypical Lymphs % (Man) Monocytes % (Manual) Basophils % (Manual) Abs Neuts (Manual) Differential Comment Platelet Estimate Platelet Morphology RBC Morphology ESR 13 PT INR APTT Sodium Potassium Chloride Carbon Dioxide Anion Gap BUN Creatinine Estimated GFR POC Glucose Random Glucose Calcium Magnesium Total Bilirubin AST ALT Alkaline Phosphatase Ammonia Troponin I Total Protein Albumin TSH Urine Color Yellow Urine Clarity Clear Urine pH 7.0 Ur Specific [place] 1.025 Urine Protein Negative Urine Glucose (UA) Negative Urine Ketones Negative Urine Occult Blood Negative Urine Nitrate Negative Urine Bilirubin Negative Urine Urobilinogen Less than 2 Ur Leukocyte Esterase Negative Urine RBC 1 Urine WBC Less than 1 Ur Squamous Epith Cells 1 Urine Mucus Few H Micro UA Comment Culture not ind Ur Microscopic Review Not Reportable Urine Culture Comments Culture not ind Salicylates Urine Opiates Screen Neg Acetaminophen Ur Barbiturates Screen Neg Ur Amphetamine Screen Ur Amphetamines Screen Neg U Benzodiazepines Scrn Neg Urine Cocaine Screen Neg U Cannabinoids Screen Neg Serum Alcohol 07/23/18 00:25 WBC RBC Hgb Hct MCV MCH MCHC RDW Plt Count MPV Prelim Diff (Auto) Neut % (Auto) Lymph % (Auto) [place] % (Auto) Eos % (Auto) Baso % (Auto) Neut # (Auto) Lymph # (Auto) [place] # (Auto) Eos # (Auto) Baso # (Auto) WBC Differential Seg Neuts % (Manual) Lymphocytes % (Manual) Atypical Lymphs % (Man) Monocytes % (Manual) Basophils % (Manual) Abs Neuts (Manual) Differential Comment Platelet Estimate Platelet Morphology RBC Morphology ESR PT INR APTT Sodium Potassium Chloride Carbon Dioxide Anion Gap BUN Creatinine Estimated GFR POC Glucose Random Glucose Calcium Magnesium Total Bilirubin AST ALT Alkaline Phosphatase Ammonia Troponin I Total Protein Albumin TSH Urine Color Urine Clarity Urine pH Ur Specific [place] Urine Protein Urine Glucose (UA) Urine Ketones Urine Occult Blood Urine Nitrate Urine Bilirubin Urine Urobilinogen Ur Leukocyte Esterase Urine RBC Urine WBC Ur Squamous Epith Cells Urine Mucus Micro UA Comment Ur Microscopic Review Urine Culture Comments Salicylates Urine Opiates Screen Neg Acetaminophen Ur Barbiturates Screen Neg Ur Amphetamine Screen Neg Ur Amphetamines Screen U Benzodiazepines Scrn Neg Urine Cocaine Screen Neg U Cannabinoids Screen Neg Serum Alcohol - Imaging Impressions Chest X-Ray 07/23/18 00:00 CONCLUSION: The lungs are clear. Head CT 07/23/18 00:47 CONCLUSION: 1. Normal noncontrast CT brain. . Head CTA 07/23/18 01:29 CONCLUSION: 1. Negative CTA of the [place]. . Neck CTA 07/23/18 01:29 CONCLUSION: 1. Negative CT of the carotids. Review/Management - Diagnosis (1) Altered mental status Code(s): R41.82 - Altered mental status, unspecified Status: Acute Current Visit: Yes - Review/Management Plan: MRI brain negative neuro exam negative CTAs brain carotids negative Possible reaction to something she ate at the restaurant Recommendations Consider CT chest for further cardiac evaluation for racing heart and other symptomatology defer to medical EEG From neurologic standpoint she can be discharged if EEG negative (1) Altered mental status Qualifiers: Altered mental status type: disorientation Qualified Code(s): R41.0 - Disorientation, unspecified
[2018-07-23] MEDS ORDERED: Gadobutrol PF 7.5 MMOL/7.5 ML Vial (for RAD) IV.SIG ONE (09:21)
[2018-07-23] MEDS: Sodium Chloride 0.9% 2 ML Flush BID IV.FLUSH SCH ×2 (09:23→20:10)
--- NOTE | 2018-07-23 09:24 | MR ---
EXAM DATE: 07/23/2018 9:19 AM EST AGE/SEX: 22 years / Female INDICATIONS: Altered mental status. CLINICAL DATA: This is the patient's subsequent encounter. Patient reports that signs and symptoms h ave been present for 2 days and indicates a pain score of 0/10. MEDICAL/SURGICAL HISTORY: None. None. [place] [facility] [place]. [facility] [place]23/[place]. . TECHNIQUE: Multiplanar, multisequence examination of the brain was performed without and with 7 ml Ga davist (gadobutrol) contrast as a single exam dose. FINDINGS: Cerebrum: The ventricles are normal for age. No evidence of midline shift, mass lesion, hemorrhage or acute infarction. No extraaxial fluid collections are seen. The pituitary gland and suprasellar cistern are normal in configuration. White Matter: No significant signal abnormalities are seen in the white matter. Posterior Fossa: The cerebellum and brainstem are intact. The 4th ventricle is midline. The cerebel lopontine angle is unremarkable. The cerebellar tonsils are normal in position. Diffusion Imaging: No focal areas of restricted diffusion are seen. No evidence of acute infarction . Extracranial: The visualized portions of the orbits and paranasal sinuses are unremarkable. Post Contrast: No abnormal areas of parenchymal or dural enhancement. No evidence of blood-brain ba rrier breakdown. CONCLUSION: 1. Negative MR Brain with and without contrast. Electronically signed by: Axel Boykin MD Board Certified Radiologist 07/23/2018 9:23 AM EST
--- NOTE | 2018-07-23 15:00 | P.DS ---
DS: Providers Date of admission: 07/23/18 02:00 Primary care physician: UNKNOWN Consults: 07/23/18 03:06 Consult to Neurology Routine Consulting Provider: Dudley Johnson Reason for Consultation: ams Notified:: Service Spoke with:: Sharon Date Notified:: 07/23/18 Time Notified:: 03:11 Ordering Provider: АННА Brief History from admission: 22-year-old female with no significant past medical history presents to the emergency department for evaluation of altered mental status. The patient reports she was sitting in a restaurant when she had "an anxiety attack". She reports that her heart was racing and her head was pounding and she was unable to answer questions that bystanders asked her. She states she understood the questions that they were asking and knew the answers but was unable to speak. On arrival to the emergency department she was unable to provide any further information. At the time of our interview, the patient had returned to baseline and was alert and oriented x4. She was able to recount what had happened. She denies any seizure history or seizure-like activity. No chest pain or shortness of breath. Positive nausea/vomiting and accompanying abdominal pain. Positive headache. No focal neurologic deficits or weakness. No fever/chills. The patient reports she had one amaretto sour earlier this evening, denies illicit drug use. DS: Diagnosis Discharge Diagnosis (1) Altered mental status: Status: Acute DS: Summary Patient was seen and evaluated by neurology, and underwent CT angiogram of the neck, head, and EEG. No other acute abnormalities were noted, patient remained clinically stable with no further episodes, and neurology cleared her for discharge home for outpatient follow-up, patient may have reacted to something she had ingested, she had an amaretto sour, perhaps she had a reaction to this, She does report severe headache, possible atypical migraine episode, she has repeat episodes, she can follow-up with neurology for prophylaxis, at this point no further neurologic workup is indicated, patient can be followed up as an outpatient. Discharge diagnosis: Altered mental status possible related to toxic ingestion, i.e. toxic encephalopathy, resolved Mild hypokalemia Time Spent with Patient Total time spent providing and/or coordinating discharge services: Quality: VTE Deep Vein Thrombosis/Pulmonary Embolism Present on Admission: No Exam Narrative Exam Narrative: Pleasant awake alert oriented thin 22-year-old -[place] female Awake alert oriented no acute distress Heart S1-S2 regular Lungs clear bilateral no wheeze no rhonchi Abdomen soft nondistended positive bowel sounds Remedies no clubbing cyanosis no edema Results Labs on day of discharge: Labs from last 24 hours 07/23/18 07/23/18 07/23/18 00:25 00:25 00:25 WBC RBC Hgb Hct MCV MCH MCHC RDW Plt Count MPV Prelim Diff (Auto) Neut % (Auto) Lymph % (Auto) [place] % (Auto) Eos % (Auto) Baso % (Auto) Neut # (Auto) Lymph # (Auto) [place] # (Auto) Eos # (Auto) Baso # (Auto) WBC Differential Seg Neuts % (Manual) Lymphocytes % (Manual) Atypical Lymphs % (Man) Monocytes % (Manual) Basophils % (Manual) Abs Neuts (Manual) Differential Comment Platelet Estimate Platelet Morphology RBC Morphology ESR 13 PT INR APTT Sodium Potassium Chloride Carbon Dioxide Anion Gap BUN Creatinine Estimated GFR POC Glucose Random Glucose Calcium Magnesium Total Bilirubin AST ALT Alkaline Phosphatase Ammonia Troponin I Total Protein Albumin TSH Urine Color Urine Clarity Urine pH Ur Specific [place] Urine Protein Urine Glucose (UA) Urine Ketones Urine Occult Blood Urine Nitrate Urine Bilirubin Urine Urobilinogen Ur Leukocyte Esterase Urine RBC Urine WBC Ur Squamous Epith Cells Urine Mucus Micro UA Comment Ur Microscopic Review Urine Culture Comments Salicylates Urine Opiates Screen Neg Ur Buprenorphine Pending Ur [place] Screen Pending Urine Oxycodone Pending Ur Methadone Pending U Hydromorphone Confirm Pending Urine Fentanyl Pending Acetaminophen Ur Barbiturates Screen Neg Urine Gabapentin Pending Ur Phencyclidine (PCP) Pending Ur Amphetamine Screen Neg Ur Amphetamines Screen Ur MDMA & Metabolites Pending U Benzodiazepines Scrn Neg Urine Cocaine Screen Neg U Cannabinoids Screen Neg Serum Alcohol 07/23/18 07/23/18 07/23/18 00:25 00:25 00:25 WBC RBC Hgb Hct MCV MCH MCHC RDW Plt Count MPV Prelim Diff (Auto) Neut % (Auto) Lymph % (Auto) [place] % (Auto) Eos % (Auto) Baso % (Auto) Neut # (Auto) Lymph # (Auto) [place] # (Auto) Eos # (Auto) Baso # (Auto) WBC Differential Seg Neuts % (Manual) Lymphocytes % (Manual) Atypical Lymphs % (Man) Monocytes % (Manual) Basophils % (Manual) Abs Neuts (Manual) Differential Comment Platelet Estimate Platelet Morphology RBC Morphology ESR PT INR APTT Sodium Potassium Chloride Carbon Dioxide Anion Gap BUN Creatinine Estimated GFR POC Glucose Random Glucose Calcium Magnesium Total Bilirubin AST ALT Alkaline Phosphatase Ammonia Troponin I Total Protein Albumin TSH Urine Color Yellow Urine Clarity Clear Urine pH 7.0 Ur Specific [place] 1.025 Urine Protein Negative Urine Glucose (UA) Negative Urine Ketones Negative Urine Occult Blood Negative Urine Nitrate Negative Urine Bilirubin Negative Urine Urobilinogen Less than 2 Ur Leukocyte Esterase Negative Urine RBC 1 Urine WBC Less than 1 Ur Squamous Epith Cells 1 Urine Mucus Few H Micro UA Comment Culture not ind Ur Microscopic Review Not Reportable Urine Culture Comments Culture not ind Salicylates Less than 1.7 L Urine Opiates Screen Neg Ur Buprenorphine Ur [place] Screen Urine Oxycodone Ur Methadone U Hydromorphone Confirm Urine Fentanyl Acetaminophen Ur Barbiturates Screen Neg Urine Gabapentin Ur Phencyclidine (PCP) Ur Amphetamine Screen Ur Amphetamines Screen Neg Ur MDMA & Metabolites U Benzodiazepines Scrn Neg Urine Cocaine Screen Neg U Cannabinoids Screen Neg Serum Alcohol 07/23/18 07/23/18 07/23/18 00:25 00:25 00:25 WBC RBC Hgb Hct MCV MCH MCHC RDW Plt Count MPV Prelim Diff (Auto) Neut % (Auto) Lymph % (Auto) [place] % (Auto) Eos % (Auto) Baso % (Auto) Neut # (Auto) Lymph # (Auto) [place] # (Auto) Eos # (Auto) Baso # (Auto) WBC Differential Seg Neuts % (Manual) Lymphocytes % (Manual) Atypical Lymphs % (Man) Monocytes % (Manual) Basophils % (Manual) Abs Neuts (Manual) Differential Comment Platelet Estimate Platelet Morphology RBC Morphology ESR PT 10.3 INR 1.0 APTT 28.9 Sodium 139 Potassium 3.2 L Chloride 104 Carbon Dioxide 24.7 Anion Gap 10 BUN 12 Creatinine 1.00 Estimated GFR 82 L POC Glucose Random Glucose 103 Calcium 8.6 Magnesium 1.9 Total Bilirubin 0.3 AST 21 ALT 21 Alkaline Phosphatase 79 Ammonia 23 Troponin I Less than 0.02 L Total Protein 8.4 H Albumin 4.0 TSH 3.070 Urine Color Urine Clarity Urine pH Ur Specific [place] Urine Protein Urine Glucose (UA) Urine Ketones Urine Occult Blood Urine Nitrate Urine Bilirubin Urine Urobilinogen Ur Leukocyte Esterase Urine RBC Urine WBC Ur Squamous Epith Cells Urine Mucus Micro UA Comment Ur Microscopic Review Urine Culture Comments Salicylates Urine Opiates Screen Ur Buprenorphine Ur [place] Screen Urine Oxycodone Ur Methadone U Hydromorphone Confirm Urine Fentanyl Acetaminophen Less than 2.0 L Ur Barbiturates Screen Urine Gabapentin Ur Phencyclidine (PCP) Ur Amphetamine Screen Ur Amphetamines Screen Ur MDMA & Metabolites U Benzodiazepines Scrn Urine Cocaine Screen U Cannabinoids Screen Serum Alcohol Less than 3 07/23/18 07/23/18 00:25 00:12 WBC 9.6 RBC 4.49 Hgb 13.6 Hct 40.3 MCV 89.8 MCH 30.4 MCHC 33.8 RDW 14.2 Plt Count 310 MPV 8.0 Prelim Diff (Auto) Slide review pending Neut % (Auto) 37.0 Lymph % (Auto) 56.9 H [place] % (Auto) 4.6 Eos % (Auto) 1.0 Baso % (Auto) 0.5 Neut # (Auto) 3.6 Lymph # (Auto) 5.5 H [place] # (Auto) 0.4 Eos # (Auto) 0.1 Baso # (Auto) 0.0 WBC Differential Manual diff final Seg Neuts % (Manual) 31 Lymphocytes % (Manual) 55 H Atypical Lymphs % (Man) 10 H Monocytes % (Manual) 3 Basophils % (Manual) 1 Abs Neuts (Manual) 3.0 Differential Comment . Platelet Estimate Normal Platelet Morphology Normal RBC Morphology Normal ESR PT INR APTT Sodium Potassium Chloride Carbon Dioxide Anion Gap BUN Creatinine Estimated GFR POC Glucose 125 H Random Glucose Calcium Magnesium Total Bilirubin AST ALT Alkaline Phosphatase Ammonia Troponin I Total Protein Albumin TSH Urine Color Urine Clarity Urine pH Ur Specific [place] Urine Protein Urine Glucose (UA) Urine Ketones Urine Occult Blood Urine Nitrate Urine Bilirubin Urine Urobilinogen Ur Leukocyte Esterase Urine RBC Urine WBC Ur Squamous Epith Cells Urine Mucus Micro UA Comment Ur Microscopic Review Urine Culture Comments Salicylates Urine Opiates Screen Ur Buprenorphine Ur [place] Screen Urine Oxycodone Ur Methadone U Hydromorphone Confirm Urine Fentanyl Acetaminophen Ur Barbiturates Screen Urine Gabapentin Ur Phencyclidine (PCP) Ur Amphetamine Screen Ur Amphetamines Screen Ur MDMA & Metabolites U Benzodiazepines Scrn Urine Cocaine Screen U Cannabinoids Screen Serum Alcohol Impressions ITS Impressions Chest X-Ray 07/23/18 00:00 CONCLUSION: The lungs are clear. Head MRI 07/23/18 00:00 CONCLUSION: 1. Negative MR Brain with and without contrast. Head CT 07/23/18 00:47 CONCLUSION: 1. Normal noncontrast CT brain. . Head CTA 07/23/18 01:29 CONCLUSION: 1. Negative CTA of the [place]. . Neck CTA 07/23/18 01:29 CONCLUSION: 1. Negative CT of the carotids. Discharge Plan Discharge Disposition Patient Disposition: 01 Discharge Home Discharge Condition Condition: Good Discharge Order Discharge Orders: Discharge Order (Routine); Ordered 07/23/18 Ordered By: Jess Noel Discharge Details Discharge Comment: dc home if eeg nml, call w questions Physicians Team Primary Care Provider: UNKNOWN, Attending Provider: Jess Noel Other Providers: Dudley Johnson Rxs /Orders / Referrals /Forms Prescriptions: No Action No Known Home Medications RF: 0 Referrals: [employer] [Outside] - See Instructions (follow up if no pcp Please call the physician's office to book the appointment to be seen within [2-3 d]. Your Health Problems: Goals to Promote Your Health: To prevent worsening of your condition To maintain your health at the optimal level Directions to Meet Your Goals: Take your medications as prescribed Follow your dietary instruction Follow activity as directed Keep your appointments as scheduled Take your immunizations and boosters as scheduled If your symptoms worsen call your PCP If no PCP go to Urgent Care or Emergency Room Smoking is dangerous to your health. Avoid second hand smoke. You may reach the 24-hour crisis hotline for domestic abuse at .) UNKNOWN, [Primary Care Provider] - See Instructions ( Please call PCP physician's office to book the appointment to be seen within [2-3d]. [facility] Status ED Status: Left Department
--- NOTE | 2018-07-23 15:22 | ECG ---
Date Performed: 07/23/2018 Time Performed: 00:13:38 PTAGE: 22 years EKG: Sinus rhythm MODERATE T-WAVE ABNORMALITY, CONSIDER ANTERIOR ISCHEMIA ABNORMAL ECG NO PREVIOUS TRACING DOCTOR: Jose Kenyon Interpretating Date/Time 07/23/2018 15:19:36
[2018-07-24 00:07] VITALS: O2SAT 99
[2018-07-24] MEDS: Sod Chloride 0.9% Inj 1,000 ML IV.CONT SCH (00:33)
[2018-07-24 07:48] LABS: Baso % (Auto) 0.6 % (0.0-2.0); Eos # (Auto) 0.1 th/mm3 (0.0-0.4); Eos % (Auto) 0.9 % (0.0-4.0); Hematocrit 33.7 % (35.0-46.0); Hemoglobin 11.4 gm/dL (11.6-15.3); Lymph # (Auto) 4.3 th/mm3 (1.0-4.8); Lymph % (Auto) 68.5 % (9.0-44.0); Mean Corpuscular Hemoglobin 31.1 pg (27.0-34.0); Mean Corpuscular Volume 91.5 fL (80.0-100.0); Mean Platelet Volume 7.8 fL (7.0-11.0); Mono # (Auto) 0.3 th/mm3 (0.0-0.9); Mono % (Auto) 4.9 % (0.0-8.0); Neut # (Auto) 1.6 th/mm3 (1.8-7.7); Neut % (Auto) 25.1 % (16.0-70.0); Platelet Count 227 th/mm3 (150-450); Red Blood Count 3.68 mil/mm3 (4.00-5.30); Red Cell Distribution Width 14.4 % (11.6-17.2); White Blood Count 6.3 th/mm3 (4.0-11.0)
[2018-07-24 08:06] LABS: Anion Gap 5 meq/L (5-15); Blood Urea Nitrogen 8 mg/dL (7-18); Calcium 7.6 mg/dL (8.5-10.1); Carbon Dioxide 24.7 meq/L (21.0-32.0); Chloride 112 meq/L (98-107); Glomerular Filtration Rate Greater Than 89 mL/min (>89); Glucose,Random 91 mg/dL (74-106); Sodium 142 meq/L (136-145)
[2018-07-24] MEDS: Sodium Chloride 0.9% 2 ML Flush BID IV.FLUSH SCH (08:26)
[2018-07-24 08:31] VITALS: BP 96/57; PULSE 68; RESP 18; TEMP 98
--- NOTE | 2018-07-24 08:33 | MG ---
cc: Dudley Johnson MD ELECTROENCEPHALOGRAM RECORD NUMBER: [id number]. DESCRIPTION: 8-9 Hz alpha activity, 10-30 microvolts. Good anterior to posterior gradient present. Reasonable driving with photic stimulation. Good EEG variability reactivity during hyperventilation. Slight left temporal region slowing EPOCH 50 compared to the right side. Further slowing with transition into drowsy state followed by stage I and stage II sleep. Tiny sharp transient T3 EPOCH 122. Single EKG showing sinus rhythm. INTERPRETATION: Mild subtle nonspecific changes noted, otherwise stable awake, asleep electroencephalogram. Clinical correlation. Dudley Johnson MD MG/ts , 07:34 AM , 07:39 AM
--- NOTE | 2018-07-24 09:17 | P.PNNEU ---
Subjective Subjective Comments: no acute events. no spells. no alejandra, feels well Active Medications: Active Medications Acetaminophen (Tylenol) 650 mg PO Q4H PRN PRN Reason: Temp > 100.4 Al Hydroxide/Mg Hydroxide (Milk Of Magnesia Liq) 30 ml PO Q12H PRN PRN Reason: Mild Constipation Bisacodyl (Dulcolax Supp) 10 mg RECTAL DAILY PRN PRN Reason: SEVERE CONSITIPATION Sodium Chloride (Ns Inj) 1,000 mls @ 100 mls/hr IV.CONT .Q10H [facility] Last Admin: 07/24/18 00:33 Dose: 100 mls/hr Lactulose (Lactulose Liq) 30 ml PO DAILY PRN PRN Reason: SEVERE CONSITIPATION Ondansetron HCl (Zofran Inj) 4 mg IV.PUSH Q6H PRN PRN Reason: NAUSEA OR VOMITING Sennosides (Senokot) 17.2 mg PO Q12H PRN PRN Reason: Moderate Constipation Sodium Chloride (Ns Flush) 2 ml IV.FLUSH BID [facility] Last Admin: 07/24/18 08:26 Dose: Not Given Sodium Chloride (Ns Flush) 2 ml IV.FLUSH PRN PRN PRN Reason: FLUSH AFTER USING IV ACCESS Allergies/Adverse Reactions: Allergies Allergy/AdvReac Type Severity Reaction Status Date / Time No Known Allergies Allergy Uncoded 08/09/16 04:57 Review of Systems All other systems reviewed negative except as stated in HPI Physical Exam Vital signs: Vital Signs 07/23/18 09:26 07/23/18 09:27 07/23/18 12:00 Temperature Pulse Rate 67 57 L Respiratory Rate 18 17 Blood Pressure 99/53 L 109/67 Pulse Oximetry 100 99 100 07/23/18 12:31 07/23/18 16:00 07/23/18 19:35 Temperature 97.3 F L 97.8 F Pulse Rate 70 58 L 56 L Respiratory Rate 16 16 Blood Pressure 99/56 L 93/55 L Pulse Oximetry 98 98 07/24/18 00:00 07/24/18 04:00 07/24/18 08:28 Temperature 98.4 F 98.1 F 98 F Pulse Rate 65 61 68 Respiratory Rate 16 14 18 Blood Pressure 85/52 L 90/54 L 96/57 L Pulse Oximetry 99 99 99 Intake & Output 07/23/18 07/24/18 07/24/18 18:59 06:59 18:59 Intake Total 1000 / 1000 1000 / 1000 Output Total 2 / 2 Balance 1000 / 1000 998 / 998 Intake: IV 1000 / 1000 1000 / 1000 NS Inj 1,000 ML @ 100 mls/hr IV 1000 / 1000 1000 / 1000 .CONT .Q10H [facility] Rx#:[id number] Output: Urine 2 / 2 Narrative: GENERAL: in NAD, SKIN: Warm and dry. HEAD: Atraumatic. Normocephalic. EYES: Pupils equal and round. No scleral icterus. ENT: No nasal bleeding or discharge. NECK: Trachea midline. RESPIRATORY: No accessory muscle use. NEUROLOGICAL: Awake and alert. No aphasia, on phone when i came in, oriented x3 fluent articulate, No facial asymmetry, OU 3-2mm, eomi, VFF, No drift, Motor grossly within normal limits. Five out of 5 muscle strength in the arms and legs. PSYCHIATRIC: Appropriate mood and affect; insight and judgment normal. - Constitutional no acute distress - Routine HEENT Exam Head: Present: normocephalic Objective Laboratory Results - last 24 hr 07/24/18 07/24/18 07:14 07:14 WBC 6.3 RBC 3.68 L Hgb 11.4 L D Hct 33.7 L MCV 91.5 MCH 31.1 MCHC 34.0 RDW 14.4 Plt Count 227 MPV 7.8 Prelim Diff (Auto) Slide review pending Neut % (Auto) 25.1 Lymph % (Auto) 68.5 H [place] % (Auto) 4.9 Eos % (Auto) 0.9 Baso % (Auto) 0.6 Neut # (Auto) 1.6 L Lymph # (Auto) 4.3 [place] # (Auto) 0.3 Eos # (Auto) 0.1 Baso # (Auto) 0.0 WBC Differential . Diff Scan Auto diff confirmed Differential Comment . Sodium 142 Potassium 4.0 D Chloride 112 H D Carbon Dioxide 24.7 Anion Gap 5 BUN 8 Creatinine 0.76 Estimated GFR Greater than 89 Random Glucose 91 Calcium 7.6 L D Review/Management - Diagnosis (1) Altered mental status Code(s): R41.82 - Altered mental status, unspecified Status: Acute Current Visit: Yes - Review/Management Plan: MRI brain negative neuro exam negative CTAs brain carotids negative Possible reaction to something she ate at the restaurant. possibility of sz Recommendations neuro stable eeg- subtle changes no driving x 6 months of being spell free if recurrent episode needs to come to er/f/u outpatient pt understands above d/c planning today (1) Altered mental status Qualifiers: Altered mental status type: disorientation Qualified Code(s): R41.0 - Disorientation, unspecified
--- NOTE | 2018-07-24 18:54 | P.DS ---
DS: Providers Date of admission: 07/23/18 02:00 Primary care physician: UNKNOWN Consults: 07/23/18 03:06 Consult to Neurology Routine Consulting Provider: Dudley Johnson Reason for Consultation: ams Notified:: Service Spoke with:: Sharon Date Notified:: 07/23/18 Time Notified:: 03:11 Ordering Provider: АННА Brief History from admission: 22-year-old female with no significant past medical history presents to the emergency department for evaluation of altered mental status. The patient reports she was sitting in a restaurant when she had "an anxiety attack". She reports that her heart was racing and her head was pounding and she was unable to answer questions that bystanders asked her. She states she understood the questions that they were asking and knew the answers but was unable to speak. On arrival to the emergency department she was unable to provide any further information. At the time of our interview, the patient had returned to baseline and was alert and oriented x4. She was able to recount what had happened. She denies any seizure history or seizure-like activity. No chest pain or shortness of breath. Positive nausea/vomiting and accompanying abdominal pain. Positive headache. No focal neurologic deficits or weakness. No fever/chills. The patient reports she had one amaretto sour earlier this evening, denies illicit drug use. DS: Diagnosis Discharge Diagnosis (1) Altered mental status: Status: Acute DS: Summary Patient dc was held for EEG study, results noted. She was deemed stable for discharge home though seizure could not be ruled out and she is advised per neurology not to drive for 6 mo seizure or episode free. She is stable for discharge home today and outpatient followup, it is more suspected she had a reaction to the alcoholic beverage she consumed that evening and is advised to avoid it, and instructed to fu w neurology as outpt Time Spent with Patient Total time spent providing and/or coordinating discharge services: Less than 30 minutes Status at Discharge Functional status at discharge: independent ambulation Overall status at discharge: patient is back to baseline Quality: VTE Deep Vein Thrombosis/Pulmonary Embolism Present on Admission: No Exam Narrative Exam Narrative: aaox2 nad heart s1s2 reg lungs clear no wrr abd soft nondt pos bs ext no edema no calf tenderness Results Labs on day of discharge: Labs from last 24 hours 07/24/18 07/24/18 07:14 07:14 WBC 6.3 RBC 3.68 L Hgb 11.4 L D Hct 33.7 L MCV 91.5 MCH 31.1 MCHC 34.0 RDW 14.4 Plt Count 227 MPV 7.8 Prelim Diff (Auto) Slide review pending Neut % (Auto) 25.1 Lymph % (Auto) 68.5 H [place] % (Auto) 4.9 Eos % (Auto) 0.9 Baso % (Auto) 0.6 Neut # (Auto) 1.6 L Lymph # (Auto) 4.3 [place] # (Auto) 0.3 Eos # (Auto) 0.1 Baso # (Auto) 0.0 WBC Differential . Diff Scan Auto diff confirmed Differential Comment . Sodium 142 Potassium 4.0 D Chloride 112 H D Carbon Dioxide 24.7 Anion Gap 5 BUN 8 Creatinine 0.76 Estimated GFR Greater than 89 Random Glucose 91 Calcium 7.6 L D Impressions ITS Impressions Chest X-Ray 07/23/18 00:00 CONCLUSION: The lungs are clear. Head MRI 07/23/18 00:00 CONCLUSION: 1. Negative MR Brain with and without contrast. Head CT 07/23/18 00:47 CONCLUSION: 1. Normal noncontrast CT brain. . Head CTA 07/23/18 01:29 CONCLUSION: 1. Negative CTA of the [place]. . Neck CTA 07/23/18 01:29 CONCLUSION: 1. Negative CT of the carotids. Discharge Plan Discharge Disposition Patient Disposition: 01 Discharge Home Discharge Condition Condition: Good Discharge Order Discharge Orders: Discharge Order (Routine); Ordered 07/23/18 Ordered By: Jess Noel Discharge Details Discharge Comment: dc home if eeg nml, call w questions Physicians Team Primary Care Provider: UNKNOWN, Attending Provider: Jess Noel Other Providers: Dudley Johnson Rxs /Orders / Referrals /Forms Prescriptions: No Action No Known Home Medications RF: 0 [facility] - See Instructions (follow up if no pcp Please call the physician's office to book the appointment to be seen within [2-3 d]. Your Health Problems: Goals to Promote Your Health: To prevent worsening of your condition To maintain your health at the optimal level Directions to Meet Your Goals: Take your medications as prescribed Follow your dietary instruction Follow activity as directed Keep your appointments as scheduled Take your immunizations and boosters as scheduled If your symptoms worsen call your PCP If no PCP go to Urgent Care or Emergency Room Smoking is dangerous to your health. Avoid second hand smoke. You may reach the 24-hour crisis hotline for domestic abuse at .) UNKNOWN, [Primary Care Provider] - See Instructions ( Please call PCP physician's office to book the appointment to be seen within [2-3d]. [facility] if no PCP) Discharge Instructions Additional Instructions: No driving for 6 months of being spell free- if recurrent episode occurs, needs to come to ER or follow up outpatient Status ED Status: Left Department Discharge Information Discharge Date/Time: 07/24/18 10:10
== END 2018-07-24 10:10 | disposition home or self-care (01) ==
LOC: NEDA 23:39 → NEPC 23:39 → NEDH 07-23 06:55 → NEPHCDU 07-23 12:30
PROVIDERS: ADMIT Internal Medicine; ATTEND Internal Medicine
DX: R41.82 Altered mental status, unspecified; R41.0 Disorientation, unspecified; R11.2 Nausea with vomiting, unspecified; R10.9 Unspecified abdominal pain; E87.6 Hypokalemia; R19.7 Diarrhea, unspecified; R51 Headache